=== PATIENT | male | born 1945 | race Caucasian/White ===

== ENCOUNTER 2017-01-26 23:18 | Emergency (ER) | payer OTHER ==
[~2017-01-26] VITALS: Ht 170.2 cm; Wt 81.6 kg
[2017-01-26 23:20] VITALS: BP 152/95
--- NOTE | 2017-01-26 23:46 | NUR ---
TO ER BED 8
--- NOTE | 2017-01-26 23:50 | NUR ---
71 YEAR OLD MALE BIB SON IN LAW. WITH RIGHT SHOULDER PAIN 08/08 AFTER HE FELL YESTERDAY. NO N/V/D. SEEN BY DR. DOW AT BEDSIDE.
--- NOTE | 2017-01-26 23:50 | NUR ---
Patient being evaluated by physician at bedside.
[2017-01-27] MEDS ORDERED: HYDROcodone/APAP 10/325 MG 1 TAB TAB PO ONE (00:20)
[2017-01-27] MEDS ORDERED: IBUPROFEN 600 MG TAB PO ONE (00:20)
--- NOTE | 2017-01-27 01:35 | NUR ---
SLING APPLIED BY NANCY HEATON AT BEDSIDE.
[2017-01-27 01:45] VITALS: BP 149/90
--- NOTE | 2017-01-27 01:45 | NUR ---
Patient discharged with v/s stable. Written and verbal after care instructions given and explained WITH RX AND NORCO . Patient verbalized understanding. Ambulatory with steady gait. All questions addressed prior to discharge. Advised to follow up with PMD. DISCHARGED PER DR. DOW.
== END 2017-01-27 01:45 | disposition home or self-care (01) ==
LOC: MED 23:18
DX: S43.401A Unspecified sprain of right shoulder joint, initial encounter (principal); E11.9 Type 2 diabetes mellitus without complications; W01.198A Fall on same level from slipping, tripping and stumbling with subsequent striking against other object, initial encounter; Y93.89 Activity, other specified; Y92.89 Other specified places as the place of occurrence of the external cause; Y99.8 Other external cause status